=== PATIENT | female | born 1985 | race Caucasian/White ===

== ENCOUNTER 2016-12-11 16:07 | Emergency (ER) | payer OTHER ==
[2016-12-11 16:37] LABS: URINE BILIRUBIN NEGATIVE (NEGATIVE); URINE BLOOD NEGATIVE (NEGATIVE); URINE GLUCOSE (UA) NORMAL (NORMAL); URINE KETONE NEGATIVE (NEGATIVE); URINE LEUKOCYTE ESTERASE NEGATIVE (NEGATIVE); URINE NITRATE NEGATIVE (NEGATIVE); URINE PROTEIN NEGATIVE (NEGATIVE); UROBILINOGEN NORMAL mg/dL (<1.0)
== END 2016-12-11 18:02 | disposition home or self-care (01) ==
LOC: ER 16:07
PROVIDERS: Emergency Medicine
DX: M54.5 Low back pain (principal); G89.29 Other chronic pain; E03.9 Hypothyroidism, unspecified; M51.25 Other intervertebral disc displacement, thoracolumbar region; Z79.899 Other long term (current) drug therapy; Z88.1 Allergy status to other antibiotic agents
CPT/HCPCS: 81003; 99070; 99283

== ENCOUNTER 2017-02-23 15:09 | Emergency (ER) | payer OTHER | END 2017-02-23 15:48 | disposition home or self-care (01) | LOC: ER 15:09 | DX: J20.9 Acute bronchitis, unspecified (principal); J02.9 Acute pharyngitis, unspecified; Z88.1 Allergy status to other antibiotic agents | CPT/HCPCS: 99282 ==

== ENCOUNTER 2017-03-30 17:15 | Emergency (ER) | payer OTHER ==
[2017-03-30 17:53] LABS: PH,URINE 6.5 (5.0 - 9.0); URINE BACTERIA TRACE (NONE SEEN); URINE BILIRUBIN NEGATIVE (NEGATIVE); URINE BLOOD NEGATIVE (NEGATIVE); URINE GLUCOSE (UA) NORMAL (NORMAL); URINE KETONE NEGATIVE (NEGATIVE); URINE LEUKOCYTE ESTERASE 1+ (NEGATIVE); URINE NITRATE NEGATIVE (NEGATIVE); URINE PROTEIN TRACE (NEGATIVE); URINE RBC 0-5 /[HPF] (0-2); URINE SQUAMOUS EPITHELIAL CELL 0-10 /[HPF] (NONE SEEN); URINE WBC 0-5 /[HPF] (0-5); UROBILINOGEN NORMAL mg/dL (<1.0)
== END 2017-03-30 18:25 | disposition home or self-care (01) ==
LOC: ER 17:15
PROVIDERS: General Practice
DX: R10.32 Left lower quadrant pain (principal); R80.9 Proteinuria, unspecified; K59.00 Constipation, unspecified; Z88.1 Allergy status to other antibiotic agents; Z79.899 Other long term (current) drug therapy
CPT/HCPCS: 81001; 99070; 99284-25